=== PATIENT | female | born 1945 | race Caucasian/White ===

== ENCOUNTER → 2023-05-12 | Emergency (ER) | payer OTHER, MEDICARE ==
[2023-05-12 11:01] LABS: Absolute Lymphocytes (CBC) 0.7 K/uL (0.7-4.9); Hematocrit 38.8 % (36.0-45.0); Lymphocytes % 14.8 % (15.3-44.8); MCV 93.6 fL (80-100); MPV 10.1 fL (7.6-11.3); Platelets 124 thou/uL (152-406); RBC Red Blood Cell Count 4.14 M/uL (3.86-4.86)
[2023-05-12 11:03] LABS: Specific Gravity > 1.030 (1.005-1.030); Urine Bacteria None Seen /HPF (<20); Urine Bilirubin NEGATIVE (Negative); Urine Blood Negative (Negative); Urine Clarity Clear (Clear); Urine Color Colorless (Yellow); Urine Glucose 4+ (Over) (Negative); Urine Mucus Slight /HPF (None Seen); Urine Protein NEGATIVE (Negative); Urine RBC <5 /HPF (None Seen); Urine Urobilinogen Normal (Normal)
[2023-05-12 11:15] LABS: Albumin 3.7 g/dL (3.4-5.0); Bilirubin Total 0.3 mg/dL (0.2-1.0); Protein, Total 7.5 g/dL (6.4-8.2)
--- NOTE | 2023-05-12 11:34 | EDPHYS ---
Physician Documentation [facility] Name: Miriam Browning Age: 77 yrs Sex: Female : 1945 Arrival Date: 05/12/2023 Time: 09:52 Bed 5 Private MD: ED Physician Migue Cavazos HPI: 05/12 11:33 This 77 yrs old Female presents to ER via Ambulatory with complaints of Altered Mental ms3 Status. 11:33 77-year-old female with past medical history of diabetes, hypertension, kidney stones ms3 presents to the emergency department with her daughter for altered mental status and confusion that occurred yesterday and during the night last night. Patient's daughter states patient is asymptomatic at this time. Patient is without complaints. Patient denies pain, nausea, vomiting.. Historical: - Allergies: 10:07 No Known Allergies; ll1 - PMHx: 10:07 Diabetes - NIDDM; Hypertension; Kidney stones; ll1 - Immunization history:: Adult Immunizations up to date. - Social history:: Smoking status: Patient denies any tobacco usage or history of. ROS: 11:33 Constitutional: Negative for fever, and chills. Neck: Negative for injury, pain, and ms3 swelling, Cardiovascular: Negative for chest pain, and palpitations. Respiratory: Negative for shortness of breath, cough, wheezing, and pleuritic chest pain, Abdomen/GI: Negative for abdominal pain, nausea, vomiting, diarrhea, and constipation, MS/Extremity: Negative for injury and deformity, Skin: Negative for injury, rash, and discoloration, 11:33 Neuro: Positive for Confusion over night, Exam: 11:33 Constitutional: This is a well developed, well nourished patient who is awake, alert, ms3 and in no acute distress. Head/Face: Normocephalic, atraumatic. Neck: Trachea midline, no cervical lymphadenopathy. Supple, full range of motion without nuchal rigidity, or vertebral point tenderness. No Meningismus. Chest/axilla: Normal chest wall appearance and motion. Nontender with no deformity. Cardiovascular: Regular rate and rhythm with a normal S1 and S2. No gallops, murmurs, or rubs. Normal PMI, no JVD. No pulse deficits. Respiratory: Lungs have equal breath sounds bilaterally, clear to auscultation and percussion. No rales, rhonchi or wheezes noted. No increased work of breathing, no retractions or nasal flaring. Abdomen/GI: Soft, non-tender, with normal bowel sounds. No distension or tympany. No guarding or rebound. No evidence of tenderness throughout. Skin: Warm, dry with normal turgor. Normal color with no rashes, no lesions, and no evidence of cellulitis. MS/ Extremity: Pulses equal, no cyanosis. Neurovascular intact. Full, normal range of motion. Neuro: Awake and alert, GCS 15, oriented to person, place, time, and situation. Cranial nerves II-XII grossly intact. Motor strength 5/5 in all extremities. Sensory grossly intact. Cerebellar exam normal. Normal gait. Psych: Awake, alert, with orientation to person, place and time. Behavior, mood, and affect are within normal limits. Vital Signs: 10:07 BP 132 / 71; Pulse 100; Resp 16; Temp 97.6; Pulse Ox 97% ; Weight 52.16 kg; Height 5 ll1 ft. 3 in. ; Pain 0/10; 11:59 BP 127 / 86; Pulse 91; Resp 18; Temp 98; Pulse Ox 99% on R/A; ph 10:07 Body Mass Index 20.37 (52.16 kg, 160.02 cm) ll1 10:07 Pain Scale: Adult ll1 MDM: 10:09 Patient medically screened. ms3 11:33 Differential Diagnosis: electrolyte abnormality, UTI, Dementia. Data reviewed: vital ms3 signs, nurses notes, lab test result(s), and as a result, I will discharge patient. Historians other than the Patient: Daughter/Son: Patient's daughter. Counseling: I had a detailed discussion with the patient and/or guardian regarding the historical points, exam findings, and any diagnostic results supporting the discharge/admit diagnosis, lab results, the need for outpatient follow up, to return to the emergency department if symptoms worsen or persist or if there are any questions or concerns that arise at home. Special discussion: I discussed with the patient/guardian in detail that at this point there is no indication for admission to the hospital. It is understood, however, that if the symptoms persist or worsen the patient needs to return immediately for re-evaluation. ED course: Discussed labs with patient and her daughter. Patient remains asymptomatic in the emergency department, alert, no apparent distress, nontoxic-appearing, speaking full sentences. Patient to follow-up with Dr. Mesa and Dr. Pablo in 2 to 3 days. Patient's daughter understands and agrees with plan. All questions were answered. Return precautions discussed include worsening symptoms, or any other concerns. 05/12 10:10 Order name: Urinalysis w/ reflexes; Complete Time: 11:15 ms3 05/12 10:10 Order name: CMP; Complete Time: 11:27 ms3 05/12 10:10 Order name: CBC with Diff; Complete Time: 11:15 ms3 Administered Medications: No medications were administered Disposition Summary: 05/12/23 11:33 Discharge Ordered Notes: Location: Home ms3 Condition: Stable ms3 Diagnosis - Altered mental status, unspecified - resolved ms3 Followup: ms3 - With: Ildefonso Mesa MD - When: 2 - 3 days - Reason: Recheck today's complaints Followup: ms3 - With: Fernando Pablo DO - When: 2 - 3 days - Reason: Recheck today's complaints Discharge Instructions: - Discharge Summary Sheet ms3 - Confusion ms3 Forms: - Medication Reconciliation Form ms3 - Thank You Letter ms3 - Antibiotic Education ms3 - Prescription Opioid Use ms3 - Patient Portal Instructions ms3 - Leadership Thank You Letter ms3 Signatures: Dispatcher [employer] Mary Forbes, RN RN ll1 Migue Cavazos DO DO ms3
--- NOTE | 2023-05-12 11:34 | ER ---
Nurse's Notes [facility] Name: Miriam Browning Age: 77 yrs Sex: Female : 1945 Arrival Date: 05/12/2023 Time: 09:52 Bed 5 Private MD: Diagnosis: Altered mental status, unspecified-resolved Presentation: 05/12 10:07 Chief complaint: Patient states: AMS per family, began yesterday. No pain or cough. ll1 Coronavirus screen: Client denies travel out of the [place] in the last 14 days. At this time, the client does not indicate any symptoms associated with coronavirus-19. Ebola Screen: Patient denies travel to an Ebola-affected area in the 21 days before illness onset. Initial Sepsis Screen: Does the patient meet any 2 criteria? HR > 90 bpm. No. Patient's initial sepsis screen is negative. Does the patient have a suspected source of infection? No. Patient's initial sepsis screen is negative. Risk Assessment: Do you want to hurt yourself or someone else? Patient reports no desire to harm self or others. Onset of symptoms was May 11, 2023. 10:07 Method Of Arrival: Ambulatory ll1 10:07 Acuity: SARAN 2 ll1 Historical: - Allergies: 10:07 No Known Allergies; ll1 - PMHx: 10:07 Diabetes - NIDDM; Hypertension; Kidney stones; ll1 - Immunization history:: Adult Immunizations up to date. - Social history:: Smoking status: Patient denies any tobacco usage or history of. Screenin:52 [facility] ED Fall Risk Assessment (Adult) History of falling in the last 3 months, ph including since admission No falls in past 3 months (0 pts). Abuse screen: Denies threats or abuse. Denies injuries from another. Nutritional screening: No deficits noted. Tuberculosis screening: No symptoms or risk factors identified. Assessment: 11:05 General: Appears in no apparent distress. comfortable, slender, well groomed, Behavior ph is calm, cooperative, appropriate for age. Pain: Denies pain. Neuro: Level of Consciousness is awake, alert, obeys commands, Oriented to person, place, situation. Cardiovascular: No deficits noted. : Denies burning with urination, urinary frequency. Vital Signs: 10:07 BP 132 / 71; Pulse 100; Resp 16; Temp 97.6; Pulse Ox 97% ; Weight 52.16 kg; Height 5 ll1 ft. 3 in. ; Pain 0/10; 11:59 BP 127 / 86; Pulse 91; Resp 18; Temp 98; Pulse Ox 99% on R/A; ph 10:07 Body Mass Index 20.37 (52.16 kg, 160.02 cm) ll1 10:07 Pain Scale: Adult ll1 ED Course: 09:54 Patient arrived in ED. mr 09:56 Migue Cavazos DO is Attending Physician. ms3 10:09 Triage completed. ll1 10:09 Arm band placed on Patient placed in an exam room, on a stretcher. ll1 10:11 Deborah Salazar, RN is Primary Nurse. ph 10:58 Patient has correct armband on for positive identification. Bed in low position. Call ph light in reach. Side rails up X 1. Pulse ox on. NIBP on. 11:32 Ildefonso Mesa MD is Referral Physician. ms3 11:32 Fernando Pablo DO is Referral Physician. ms3 11:59 No provider procedures requiring assistance completed. IV discontinued, intact, ph bleeding controlled, No redness/swelling at site. Pressure dressing applied. Administered Medications: No medications were administered Medication: 10:58 VIS not applicable for this client. ph Outcome: 11:33 Discharge ordered by . ms3 11:59 Discharged to ph 11:59 Discharged to home ambulatory, with family, 11:59 Condition: good 11:59 Discharge instructions given to family, Instructed on discharge instructions, follow up and referral plans. Demonstrated understanding of instructions, follow-up care, 12:00 Patient left the ED. ph Signatures: Becky Torres, Reg Reg mr Deborah Salazar, RN RN ph Mary Foster RN RN ll1 Migue Cavazos DO DO ms3
[2023-05-12 12:34] VITALS: BP 127/86; TEMP 98; O2SAT 99
== END ==
LOC: ER 09:52
DX: R41.82 Altered mental status, unspecified (principal); E11.9 Type 2 diabetes mellitus without complications; I10 Essential (primary) hypertension
CPT/HCPCS: 36415; 80053; 81001; 85025

== ENCOUNTER → 2023-06-06 | Emergency (ER) | payer OTHER, MEDICARE ==
[~2023-06-06] MED LIST: TRAZODONE 50 MG TABLET PO ONE
--- NOTE | 2023-06-06 16:14 | EDPHYS ---
Physician Documentation [facility] Name: Miriam Browning Age: 77 yrs Sex: Female : 1945 Arrival Date: 06/06/2023 Time: 13:57 Bed 17 Private MD: ED Physician Enmanuel Aguiar HPI: 06/05 14:24 This 77 yrs old Female presents to ER via Ambulatory with complaints of agitation. sb4 14:25 Patient comes in with agitation per . Patient was seen here 2 weeks ago and sb4 transferred to a [facility] psych facility, she was discharged with prescriptions for Prozac, Abilify, and trazodone. states that he was unable to fill the trazodone therefore patient did not sleep well last night and has been agitated today and trying to leave the house. She has no complaints at this time. Historical: - Allergies: 14:20 No Known Allergies; aa5 - PMHx: 14:20 Dementia; Diabetes - NIDDM; Hypertension; Kidney stones; aa5 - PSHx: 14:20 Cholecystectomy; aa5 - Immunization history:: Adult Immunizations up to date. - Social history:: Smoking status: Patient denies any tobacco usage or history of. ROS: 14:25 Constitutional: Negative for fever, chills, and weight loss, sb4 14:25 All other systems are negative, Exam: 14:25 Constitutional: This is a well developed, well nourished patient who is awake, alert, sb4 and in no acute distress. Head/Face: Normocephalic, atraumatic. Eyes: Extra-ocular motions intact. Periorbital areas with no swelling, redness, or edema. ENT: Mucous membranes moist. Skin: Warm, dry with normal turgor. Normal color with no rashes, no lesions, and no evidence of cellulitis. MS/ Extremity: Pulses equal, no cyanosis. Neurovascular intact. Full, normal range of motion. Vital Signs: 14:09 BP 140 / 56; Pulse 65; Resp 16 S; Temp 97.8(TE); Pulse Ox 98% on R/A; aa5 15:40 BP 135 / 60; Pulse 68; Resp 18; Pulse Ox 98% on R/A; rs5 16:31 BP 137 / 63; Pulse 70; Resp 18; Pulse Ox 99% on R/A; rs5 MDM: 14:13 Patient medically screened. sb4 16:13 Data reviewed: vital signs, nurses notes, and as a result, I will discharge patient. sb4 Counseling: I had a detailed discussion with the patient and/or guardian regarding the historical points, exam findings, and any diagnostic results supporting the discharge/admit diagnosis, to return to the emergency department if symptoms worsen or persist or if there are any questions or concerns that arise at home. Administered Medications: 15:07 Drug: traZODONE PO 50 mg PO once Route: PO; rs5 15:40 Follow up: Response: No adverse reaction rs5 Disposition: 19:11 Co-signature as Attending Physician, Enmanuel Aguiar MD I agree with the assessment and cp3 plan of care. Disposition Summary: 06/06/23 16:13 Discharge Ordered Notes: Location: Home sb4 Problem: new sb4 Symptoms: have improved sb4 Condition: Stable sb4 Diagnosis - Restlessness and agitation sb4 Followup: sb4 - With: Emergency Department - When: As needed - Reason: Trouble breathing, Worsening of condition Discharge Instructions: - Discharge Summary Sheet sb4 Forms: - Thank You Letter sb4 - Patient Portal Instructions sb4 - Leadership Thank You Letter sb4 Prescriptions: - trazodone 50 mg Oral tablet - take 1 tablet ORAL route 3 times per day PRN agitation; 12 tablet; Refills: 0, sb4 Product Selection Permitted Signatures: Enmanuel Aguiar MD MD cp3 Deirdre Cordova, RN RN aa5 Jaimie Umaña PA-C PARadha sb4 Delbert Diaz RN RN rs5
--- NOTE | 2023-06-06 16:14 | ER ---
Nurse's Notes [facility] Name: Miriam Browning Age: 77 yrs Sex: Female : 1945 Arrival Date: 06/06/2023 Time: 13:57 Bed 17 Private MD: Diagnosis: Restlessness and agitation Presentation: 06/05 14:09 Chief complaint: Pt's states "she got released from a psychiatric hospital on aa5 and she just hasn't been sleeping well and today she became more confused, she didn't recognize me and was trying to leave the house". Pt is A\\T\\O x person and place. 14:09 Coronavirus screen: At this time, the client does not indicate any symptoms associated aa5 with coronavirus-19. Ebola Screen: Patient denies travel to an Ebola-affected area in the 21 days before illness onset. Initial Sepsis Screen: Does the patient meet any 2 criteria? No. Patient's initial sepsis screen is negative. Does the patient have a suspected source of infection? No. Patient's initial sepsis screen is negative. Risk Assessment: Do you want to hurt yourself or someone else? Unable to obtain. Onset of symptoms was June 06, 2023. 14:09 Acuity: SARAN 2 aa5 14:09 Method Of Arrival: Ambulatory aa5 Historical: - Allergies: 14:20 No Known Allergies; aa5 - PMHx: 14:20 Dementia; Diabetes - NIDDM; Hypertension; Kidney stones; aa5 - PSHx: 14:20 Cholecystectomy; aa5 - Immunization history:: Adult Immunizations up to date. - Social history:: Smoking status: Patient denies any tobacco usage or history of. Screenin:11 [facility] ED Fall Risk Assessment (Adult) History of falling in the last 3 months, rs5 including since admission No falls in past 3 months (0 pts) Confusion or Disorientation No (0 pts) Intoxicated or Sedated No (0 pts) Impaired Gait No (0 pts) Mobility Assist Device Used No (0 pt) Altered Elimination No (0 pt) Score/Fall Risk Level 0 - 2 = Low Risk Oriented to surroundings, Maintained a safe environment. 14:11 Abuse screen: Denies threats or abuse. Nutritional screening: No deficits noted. rs5 Tuberculosis screening: No symptoms or risk factors identified. Assessment: 14:10 General: Appears uncomfortable, Behavior is anxious, restless. Pain: Denies pain. rs5 Neuro: Level of Consciousness is awake, alert, obeys commands, Oriented to person, place, time, situation. Cardiovascular: Patient's skin is warm and dry. Rhythm is regular. Respiratory: Airway is patent Respiratory effort is even, unlabored, Respiratory pattern is regular, symmetrical. 14:10 GI: Abdomen is flat, non-distended, Abd is soft and non tender X 4 quads. : No signs rs5 and/or symptoms were reported regarding the genitourinary system. EENT: No signs and/or symptoms were reported regarding the EENT system. Derm: Skin is intact, Skin is pink, warm \\T\\ dry. Musculoskeletal: Range of motion: intact in all extremities. 14:30 Reassessment: [facility] med [facility], med order faxed to pharmacy and rs5 pharmacy called. Pharmacy agreed to bring med to me to adm to pt. 14:55 Reassessment: Reassessment: No changes from previously documented assessment. Med has rs5 not arrived. Pharmacy contacted, pharmacy personnel states "we will bring the med to you now". Provider notified. 15:07 Reassessment: to bedside for med adm. rs5 15:10 Reassessment: To bedside for med adm. rs5 16:11 General: Appears in no apparent distress. comfortable, Behavior is calm, cooperative, rs5 provider notified pt is calm and cooperative . 16:11 Reassessment: Patient and/or family updated on plan of care and expected duration. Pain rs5 level reassessed. Patient is alert, oriented x 3, equal unlabored respirations, skin warm/dry/pink. Pain: Denies pain. Vital Signs: 14:09 BP 140 / 56; Pulse 65; Resp 16 S; Temp 97.8(TE); Pulse Ox 98% on R/A; aa5 15:40 BP 135 / 60; Pulse 68; Resp 18; Pulse Ox 98% on R/A; rs5 16:31 BP 137 / 63; Pulse 70; Resp 18; Pulse Ox 99% on R/A; rs5 ED Course: 14:06 Patient arrived in ED. im 14:09 Arm band placed on. aa5 14:12 No provider procedures requiring assistance completed. rs5 14:13 Jaimie Umaña PA-C is PHCP. sb4 14:13 Enmanuel Aguiar MD is Attending Physician. sb4 14:18 Delbert Diaz, RN is Primary Nurse. rs5 14:20 Patient has correct armband on for positive identification. Placed in gown. Bed in low rs5 position. Call light in reach. Side rails up X2. 14:23 Triage completed. aa5 16:31 IV discontinued, intact, bleeding controlled, No redness/swelling at site. Pressure rs5 dressing applied. Administered Medications: 15:07 Drug: traZODONE PO 50 mg PO once Route: PO; rs5 15:40 Follow up: Response: No adverse reaction rs5 Medication: 16:30 VIS not applicable for this client. rs5 Outcome: 16:13 Discharge ordered by MD. sb4 16:31 Discharged to home ambulatory, with family, rs5 16:31 Condition: stable 16:31 Discharge instructions given to patient, family, Instructed on discharge instructions, follow up and referral plans. medication usage, Demonstrated understanding of instructions, follow-up care, medications, Prescriptions given X 1, 16:32 Patient left the ED. rs5 Signatures: Deirdre Cordova RN RN aa5 Jaimie Umaña PA-C PA-C sb4 Delbert Diaz, RN RN rs5 Stacie Garcia Corrections: (The following items were deleted from the chart) 16:26 16:23 Reassessment: rs5 rs5 16:27 15:25 traZODONE PO 50 mg PO rs5 rs5 16:27 14:55 Reassessment: Med has not arrived. Pharmacy contacted, pharmacy personnel states rs5 "we will bring the med to you now". Reassessment: Med has not arrived. Pharmacy contacted, pharmacy personnel states "we will bring the med to you now". rs5 16:28 14:55 Reassessment: No changes from previously documented assessment. Med has not rs5 arrived. Pharmacy contacted, pharmacy personnel states "we will bring the med to you now". Provider notified. Reassessment: No changes from previously documented assessment. Med has not arrived. Pharmacy contacted, pharmacy personnel states "we will bring the med to you now". Provider notified. rs5 16:29 16:11 General: Appears in no apparent distress. comfortable, Behavior is calm, rs5 cooperative, rs5
[2023-06-06 16:51] VITALS: BP 137/63; TEMP 97.8; O2SAT 99
== END ==
LOC: ER 13:57
DX: R45.1 Restlessness and agitation (principal); F03.90 Unspecified dementia, unspecified severity, without behavioral disturbance, psychotic disturbance, mood disturbance, and anxiety
CPT/HCPCS: 99283

== ENCOUNTER 2024-04-29 11:01 | Emergency (ER) | payer OTHER, MEDICARE ==
[2024-04-29] MEDS ORDERED: LORazepam 2 MG/ML VIAL ONE (11:17)
[2024-04-29 11:32] LABS: Absolute Lymphocytes (CBC) 1.2 K/uL (0.7-4.9); Absolute Monocytes 0.6 K/uL (0.1-1.3); Absolute Neutrophil 4.4 K/uL (1.8-8.0); Basophils % 0.3 % (0-1.3); Eosinophils % 0.4 % (0-4.4); Hematocrit 39.4 % (36.0-45.0); Hemoglobin 13.5 g/dL (12.0-15.0); Lymphocytes % 18.7 % (15.3-44.8); MCH 32.4 pg (27.0-35.0); MCHC 34.3 g/dL (32.0-36.0); MCV 94.4 fL (80-100); Monocytes % 9.3 % (3.3-12.3); Neutrophils % 71.3 % (41.7-73.7); Nucleated Red Blood Cells % 0.1 % (0-0); Platelets 119 thou/uL (152-406); RBC Red Blood Cell Count 4.17 M/uL (3.86-4.86)
--- NOTE | 2024-04-29 11:47 | RAD REPORT ---
EXAMINATION: CT HEAD WITHOUT CONTRAST CT CERVICAL SPINE WITHOUT CONTRAST CLINICAL INDICATION: Female, 78 years old. GLF TECHNIQUE: Axial CT images from the skull base to the vertex without intravenous contrast. Axial CT i mages through the cervical spine were obtained without intravenous contrast. Sagittal and coronal reformatted images were created from the data set. Coronal and sagittal reformatted images were creat ed from the data set. One or more of the following dose reduction techniques were used: Automated exposure control, adjustment of the mA and/or kV according to patient size, and/or iterative reconstr uction. Unless otherwise specified, incidental findings do not require dedicated imaging follow-up. [id number]. COMPARISON: 05/21/2023 FINDINGS: Head: INTRACRANIAL: No acute intracranial hemorrhage. No hydrocephalus. No mass effect or midline shift. Mi ld chronic small vessel ischemic changes.Moderate cerebral atrophy. VASCULATURE: No visualized abnormalities in the arteries or dural venous sinuses. SCALP/SKULL: No significant soft tissue or osseous abnormalities. Forehead hematoma SINUSES: The visualized paranasal sinuses and mastoid air cells are predominantly clear. Cervical spine: ALIGNMENT: The cervical spine has normal alignment without scoliosis or spondylolisthesis. BONE: Vertebral body heights are maintained. No aggressive osseous lesions. DEGENERATIVE CHANGES: Multilevel cervical spondylosis with varying degrees of neural foraminal narrow ing. This is most pronounced on the left at C3-4 and on the right at C5-6 and C6-7. SOFT TISSUE: IMPRESSION: No acute intracranial abnormality. No acute fracture or traumatic malalignment of the cervical spine.
--- NOTE | 2024-04-29 11:49 | RAD REPORT ---
EXAM: Chest Single View HISTORY: COUGH COMPARISON: 05/21/2023 FINDINGS: LUNGS/PLEURA: Subtle nodular opacities in the right upper lobe which are new from prior. MEDIASTINUM: The mediastinal silhouette is within normal limits. CARDIAC: The cardiac silhouette is within normal limits. UPPER ABDOMEN: No significant abnormality. BONES: No acute abnormality. LINES/TUBES/OTHER: N/A IMPRESSION: Subtle right upper lobe nodular opacities could reflect infection or sequela of recent infection.
--- NOTE | 2024-04-29 11:51 | RAD REPORT ---
EXAMINATION: CT MAXILLOFACIAL WITHOUT CONTRAST CLINICAL INDICATION: Female, 78 years old. R nely-orb injury TECHNIQUE: Axial images were obtained through the facial bones and orbits without intravenous contras t. Sagittal and coronal reconstructions were created from the data. One or more of the following dose reduction techniques were used: Automated exposure control, adjustment of the mA and/or kV accor ding to patient size, and/or iterative reconstruction. Unless otherwise specified, incidental findings do not require dedicated imaging follow-up. [id number]. COMPARISON: No prior exam. FINDINGS: SOFT TISSUE: No significant abnormalities. BONES: No evidence of fracture, dislocation, or aggressive osseous lesions. No lesion of the visuali zed skull base or calvarium. Soft tissue hematoma at the forehead to the right of midline.. Lucency associated with the left maxillary first molar. ORBITS: The globes are intact. No intraorbital hemorrhage or mass. SINUSES: The paranasal sinuses and tympanomastoid cavities are predominantly clear. BRAIN: No acute abnormalities in the visualized intracranial structures. IMPRESSION: No facial fracture. Forehead hematoma.
[2024-04-29 11:52] LABS: PT Prothrombin Time 11.3 SECONDS (9.4-12.5); Protime INR 1.08
[2024-04-29 12:02] LABS: Anion Gap 9.1 mEq/L (5.0-15.0); Potassium 4.1 mEq/L (3.5-5.1); Troponin High Sensitivity 8.1 pg/mL (<58.9)
[2024-04-29] MEDS ORDERED: DIAZEPAM 10 MG/2 ML INJ SYRINGE ONE (12:03)
[2024-04-29 13:01] LABS: Specific Gravity 1.024 (1.005-1.030); Urine Bacteria <20 /HPF (<20); Urine Bilirubin NEGATIVE (Negative); Urine Blood Negative (Negative); Urine Clarity Turbid (Clear); Urine Color Light-Yellow (Yellow); Urine Culture Reflex Order NOT NEEDED; Urine Glucose 1+ (Negative); Urine Ketones NEGATIVE (Negative); Urine Micro Reflex YN NO BILL MICROSCOPIC; Urine Mucus Slight /HPF (None Seen); Urine Nitrite NEGATIVE (Negative); Urine Protein TRACE (Negative); Urine RBC <5 /HPF (None Seen); Urine Urobilinogen Normal (Normal); Urine WBC <5 /HPF (<5); Urine pH 7.5 (5.0-7.0)
--- NOTE | 2024-04-29 13:08 | EDPHYS ---
Physician Documentation [facility] Name: Miriam Browning Age: 78 yrs Sex: Female : 1945 Arrival Date: 04/29/2024 Time: 11:01 Bed 2 Private MD: ED Physician Ethan Roman HPI: 04/29 11:08 This 78 yrs old Female presents to ER via Unassigned with complaints of GLF. ec2 11:08 Patient arrives today for evaluation after ground-level fall. Reports that she had a ec2 ground-level fall after she slipped and fell on a freshly cleaned surface. No LOC, not on blood thinners, complaining of facial pain to the right face as well as facial swelling. Injury occurred last night.. Historical: - Allergies: 11:09 No Known Allergies; jl7 - PMHx: 11:09 Dementia; Diabetes - NIDDM; Hypertension; Kidney stones; hyperlipidemia; jl7 - Immunization history:: Adult Immunizations unknown. - Infectious Disease History:: Denies. - Social history:: Smoking status: Patient denies any tobacco usage or history of. ROS: 11:09 Constitutional: as per hpi ec2 Exam: 11:09 Constitutional: GEN: No acute distress HEENT: -Head: no deformities -Eyes: EOMI CV: ec2 regular rate LUNGS: no respiratory distress ABD: non-tender SKIN: no wounds appreciated right periorbital region with ecchymosis noted, no deformities or crepitus appreciated. MSK: No C/T/L spine deformities RUE w/o bony deformity LUE w/o bony deformity RLE w/o bony deformity LLE w/o bony deformity NEURO: moves all extremities equally, GCS 15 (E4, V5, M6) Vital Signs: 11:07 BP 171 / 86; Pulse 73; Resp 17; Temp 97; Pulse Ox 100% ; Weight 44.5 kg; jl7 14:03 BP 141 / 78; Pulse 74; Resp 16; Pulse Ox 98% on R/A; iw MDM: 11:03 Medical Screening Exam initiated ec2 11:09 Data reviewed: vital signs, nurses notes. ED course: Patient arrives today for ec2 evaluation after GLF. Examination yields right facial findings as above. Will obtain lab work, CT imaging. Differential includes facial fractures, intracranial brain bleed, C-spine fracture, anemia.. 12:16 ED course: Metabolic profile is reassuring, troponin within normal ranges. CBC is ec2 reassuring. Chest x-ray shows possible recent infection, patient without any respiratory symptoms at this time. CT scan of the head and C-spine without bony fractures, facial bones with hematoma noted. Pending urine study. Will give the patient Valium for restlessness.. 12:37 ED course: EKG independently reviewed and interpreted by me, shows normal sinus rhythm, ec2 rate of 69, no acute ST segment elevations, intervals are nonactionable.. 13:06 ED course: Urine is noninfectious appearing.. ec2 04/29 11:04 Order name: Basic Metabolic Panel; Complete Time: 12:16 ec2 04/29 11:04 Order name: CBC with Diff; Complete Time: 11:48 ec2 04/29 11:04 Order name: Troponin HS; Complete Time: 12:16 ec2 04/29 11:09 Order name: UAM; Complete Time: 13:05 ec2 04/29 11:15 Order name: PT-INR; Complete Time: 12:01 ec2 04/29 11:15 Order name: Ptt, Activated; Complete Time: 12:01 ec2 04/29 11:04 Order name: XRAY Chest (1 view); Complete Time: 12:01 ec2 04/29 11:04 Order name: CT Head C Spine; Complete Time: 11:48 ec2 04/29 11:04 Order name: Facial Bones W/O Con CT; Complete Time: 12:01 ec2 04/29 11:04 Order name: Cardiac monitoring; Complete Time: 12:42 ec2 04/29 11:04 Order name: EKG - Nurse/Tech; Complete Time: 12:42 ec2 04/29 11:04 Order name: IV Saline Lock; Complete Time: 11:23 ec2 04/29 11:04 Order name: Labs collected and sent; Complete Time: 11:23 ec2 04/29 11:04 Order name: O2 Per Protocol; Complete Time: 11:56 ec2 04/29 11:04 Order name: O2 Sat Monitoring; Complete Time: 11:56 ec2 04/29 12:16 Order name: Cath; Complete Time: 12:18 ec2 Administered Medications: 11:19 Drug: Ativan IVP 1 mg IVP once Route: IVP; Site: right forearm; iw 12:19 Drug: Diazepam IVP 5 mg IVP once Route: IVP; Site: right forearm; iw Disposition Summary: 04/29/24 13:07 Discharge Ordered Notes: Location: Home ec2 Condition: Stable ec2 Diagnosis - Fall on same level, unspecified ec2 Followup: ec2 - With: Private Physician - When: - Reason: Re-evaluation by your physician Discharge Instructions: - Discharge Summary Sheet ec2 - Fall Prevention in the Home, Adult, [id number] ec2 Forms: - Medication Reconciliation Form ec2 - Antibiotic Education ec2 - Prescription Opioid Use ec2 - Patient Portal Instructions ec2 - Leadership Thank You Letter ec2 Signatures: Dispatcher [employer] Rubi Garzon RN RN iw Leal, Jahala, RN RN jl7 Ethan Roman MD MD ec2 Corrections: (The following items were deleted from the chart) 11:10 11:09 PMHx: Hypercholesterolemia; jl7 jl7
--- NOTE | 2024-04-29 13:08 | ER ---
Nurse's Notes [facility] Name: Miriam Browning Age: 78 yrs Sex: Female : 1945 Arrival Date: 04/29/2024 Time: 11:01 Bed 2 Private MD: Diagnosis: Fall on same level, unspecified Presentation: 04/29 11:07 Chief complaint: EMS states: Toned out to [place] for fall, bruising and swelling jl7 noted to right side of face. Coronavirus screen: At this time, the client does not indicate any symptoms associated with coronavirus-19. Ebola Screen: No symptoms or risks identified at this time. Initial Sepsis Screen: Does the patient meet any 2 criteria? No. Patient's initial sepsis screen is negative. Does the patient have a suspected source of infection? No. Patient's initial sepsis screen is negative. Risk Assessment: Do you want to hurt yourself or someone else? Patient reports no desire to harm self or others. Onset of symptoms is unknown. 11:07 Method Of Arrival: EMS: [facility] jl7 11:07 Acuity: SARAN 3 jl7 Historical: - Allergies: 11:09 No Known Allergies; jl7 - PMHx: 11:09 Dementia; Diabetes - NIDDM; Hypertension; Kidney stones; hyperlipidemia; jl7 - Immunization history:: Adult Immunizations unknown. - Infectious Disease History:: Denies. - Social history:: Smoking status: Patient denies any tobacco usage or history of. Screenin:57 [facility] ED Fall Risk Assessment (Adult) History of falling in the last 3 months, iw including since admission Yes- single mechanical fall (1 pt) Confusion or Disorientation Yes (5 pts) Intoxicated or Sedated No (0 pts) Impaired Gait Yes (1 pt) Mobility Assist Device Used Yes (1 pt) Altered Elimination No (0 pt) Score/Fall Risk Level 3 or more points = High Risk Maintained a safe environment, Educated pt \\T\\ family on fall prevention, incl call for assistance when getting out of bed, Hourly rounding (assess needs \\T\\ fall precautionary measures) done. Abuse screen: Denies threats or abuse. Nutritional screening: No deficits noted. Tuberculosis screening: No symptoms or risk factors identified. Assessment: 11:00 General: Appears in no apparent distress. Behavior is agitated, anxious, uncooperative. iw Pain: Denies pain. Neuro: Level of Consciousness is awake, alert, confused, Oriented to Moves all extremities. Cardiovascular: Respiratory: Respiratory effort is even, Respiratory pattern is regular. 11:56 Reassessment: pt repeats over and over "there's nothing wrong with me , take me home". iw 14:05 Reassessment: report called to [facility] will set up transport back to facility. iw 14:46 Reassessment: Patient appears in no apparent distress at this time. [facility] at bedside for transport. Vital Signs: 11:07 BP 171 / 86; Pulse 73; Resp 17; Temp 97; Pulse Ox 100% ; Weight 44.5 kg; jl7 14:03 BP 141 / 78; Pulse 74; Resp 16; Pulse Ox 98% on R/A; iw ED Course: 11:00 Initial lab(s) drawn, by me, sent to lab. Inserted saline lock: 22 gauge in right iw forearm, using aseptic technique. Blood collected. Flushed with 10 mL NS. 11:03 Patient arrived in ED. ec2 11:03 Ethan Roman MD is Attending Physician. ec2 11:06 Jayjay Levi, RN is Primary Nurse. jl7 11:08 Rubi Coleman, [facility] is Primary Nurse. iw 11:09 Triage completed. jl7 11:09 Arm band placed on right wrist. jl7 11:35 CT Head C Spine In Process Unspecified. EDMS 11:35 Facial Bones W/O Con CT In Process Unspecified. EDMS 11:45 XRAY Chest (1 view) In Process Unspecified. EDMS 12:44 UAM Sent. iw 14:46 No provider procedures requiring assistance completed. IV discontinued, intact, iw bleeding controlled, No redness/swelling at site. Pressure dressing applied. Administered Medications: 11:19 Drug: Ativan IVP 1 mg IVP once Route: IVP; Site: right forearm; iw 12:19 Drug: Diazepam IVP 5 mg IVP once Route: IVP; Site: right forearm; iw Medication: 14:47 VIS not applicable for this client. iw Outcome: 13:07 Discharge ordered by . ec2 14:46 [facility] to [facility]. Report called to [facility] [place] intern form completed. iw 14:46 Condition: good 14:46 Discharge instructions given to prison, Instructed on discharge instructions, Demonstrated understanding of instructions, 14:47 Patient left the ED. iw Signatures: Dispatcher [employer] Rubi Garzon RN RN iw Leal, Jahala, RN RN jl7 Ethan Roman MD MD ec2 Corrections: (The following items were deleted from the chart) 11:10 11:09 PMHx: Hypercholesterolemia; fern jl7
[2024-04-29 15:00] VITALS: TEMP 97
[2024-04-29 15:01] VITALS: BP 141/78; O2SAT 98
== END 2024-04-29 14:47 | disposition home or self-care (01) ==
LOC: ER 11:01
DX: S00.11XA Contusion of right eyelid and periocular area, initial encounter (principal); W18.30XA Fall on same level, unspecified, initial encounter
CPT/HCPCS: 85025; 81001; 80048; 36415; 85610; 85730; 84484; 70450; 72125; 70486; 76377; 71045; 96375; 96374; 99284; J3360; 93005

== ENCOUNTER 2024-05-12 08:37 | Emergency (ER) | payer OTHER, MEDICARE ==
--- NOTE | 2024-05-12 09:20 | RAD REPORT ---
EXAMINATION: CT HEAD WITHOUT CONTRAST CT CERVICAL SPINE WITHOUT CONTRAST CLINICAL INDICATION: Female, 78 years old. TRAUMA TECHNIQUE: Axial CT images from the skull base to the vertex without intravenous contrast. Axial CT i mages through the cervical spine were obtained without intravenous contrast. Sagittal and coronal reformatted images were created from the data set. Coronal and sagittal reformatted images were creat ed from the data set. One or more of the following dose reduction techniques were used: Automated exposure control, adjustment of the mA and/or kV according to patient size, and/or iterative reconstr uction. Unless otherwise specified, incidental findings do not require dedicated imaging follow-up. [id number]. COMPARISON: 04/29/2024 FINDINGS: Head: INTRACRANIAL: No acute intracranial hemorrhage. No hydrocephalus. No mass effect or midline shift. Mi ld chronic small vessel ischemic changes.Age advanced cerebral atrophy. VASCULATURE: No visualized abnormalities in the arteries or dural venous sinuses. SCALP/SKULL: Forehead hematoma. No skull fracture. SINUSES: The visualized paranasal sinuses and mastoid air cells are predominantly clear. Cervical spine: ALIGNMENT: Unchanged. No traumatic malalignment. BONE: Vertebral body heights are maintained. No aggressive osseous lesions. DEGENERATIVE CHANGES: Multilevel cervical spondylosis with varying degrees of neural foraminal narrow ing. No high-grade central spinal stenosis. SOFT TISSUE: No significant abnormalities in the soft tissue of the neck. The visualized lung apices are clear. IMPRESSION: No acute intracranial abnormality. No acute fracture or traumatic malalignment of the cervical spine.
--- NOTE | 2024-05-12 09:34 | ER ---
Nurse's Notes [facility] Name: Miriam Browning Age: 78 yrs Sex: Female : 1945 Arrival Date: 05/12/2024 Time: 08:37 Bed 19 Private MD: Diagnosis: Fall, closed head injury Presentation: 05/12 08:42 Chief complaint: EMS states: they were toned out to [place] because "she was found kc6 crawling around in her room so they think she fell". pt denies any complaints at this time. unknown LOC, takes a baby ASA daily. Coronavirus screen: At this time, the client does not indicate any symptoms associated with coronavirus-19. Ebola Screen: No symptoms or risks identified at this time. Initial Sepsis Screen: Does the patient meet any 2 criteria? Altered Mental Status. Does the patient have a suspected source of infection? No. Patient's initial sepsis screen is negative. Risk Assessment: Do you want to hurt yourself or someone else? Patient reports no desire to harm self or others. Onset of symptoms was May 12, 2024. 08:42 Method Of Arrival: EMS: [facility] 6 08:42 Acuity: SARAN 4 kc6 Historical: - Allergies: 08:44 No Known Allergies; kc6 - PMHx: 08:44 Dementia; Diabetes - NIDDM; Hyperlipidemia; Hypertension; Kidney stones; Seizure; kc6 Anxiety; Alzheimer's disease; - PSHx: 08:44 Cholecystectomy; kc6 - Immunization history:: Adult Immunizations up to date. - Infectious Disease History:: Denies. - Social history:: Smoking status: unknown. Screenin:47 [facility] ED Fall Risk Assessment (Adult) History of falling in the last 3 months, kc6 including since admission Yes- single mechanical fall (1 pt) Confusion or Disorientation Yes (5 pts) Intoxicated or Sedated No (0 pts) Impaired Gait No (0 pts) Mobility Assist Device Used No (0 pt) Altered Elimination No (0 pt) Score/Fall Risk Level 3 or more points = High Risk Oriented to surroundings, Maintained a safe environment, Educated pt \\T\\ family on fall prevention, incl call for assistance when getting out of bed. Abuse screen: Denies threats or abuse. Denies injuries from another. Nutritional screening: No deficits noted. Tuberculosis screening: No symptoms or risk factors identified. Assessment: 08:47 General: Appears in no apparent distress. comfortable, slender, well groomed, well kc6 developed, Behavior is calm, cooperative, appropriate for age. Pain: Unable to use pain scale. Patient is disoriented. Neuro: Level of Consciousness is awake, alert, obeys commands, confused, Oriented to person, Appropriate for age. Cardiovascular: Capillary refill < 3 seconds. Respiratory: Airway is patent Trachea midline Respiratory effort is even, unlabored, Respiratory pattern is regular, symmetrical. GI: No signs and/or symptoms were reported involving the gastrointestinal system. : No signs and/or symptoms were reported regarding the genitourinary system. EENT: No signs and/or symptoms were reported regarding the EENT system. Derm: Skin is intact, is healthy with good turgor, Skin is dry, Skin is normal, Skin temperature is warm Bruising that is dark purple, green, yellow, on face and right eye. Musculoskeletal: No signs and/or symptoms reported regarding the musculoskeletal system. Circulation, motion, and sensation intact. Range of motion: intact in all extremities, Swelling present in base of the skull. 09:42 Reassessment: Patient appears in no apparent distress at this time. No changes from kc previously documented assessment. Patient and/or family updated on plan of care and expected duration. Pain level reassessed. nurse to nurse report given to [facility]. state they will arrange transport and call back with an ETA. Vital Signs: 08:42 BP 173 / 96; Pulse 75; Resp 18 S; Temp 98.2(O); Pulse Ox 97% on R/A; Weight 44.91 kg kc6 (M); Height 5 ft. 3 in. (R); Pain 0/10; 08:42 Body Mass Index 17.54 (44.91 kg, 160.02 cm) kc6 08:42 Pain Scale: Adult [facility] ED Course: 08:42 Patient arrived in ED. kc6 08:44 Cindy Pablo MD is Attending Physician. sp3 08:44 Triage completed. kc6 08:44 Arm band placed on. kc6 08:46 Patient has correct armband on for positive identification. Bed in low position. Call [facility] light in reach. Side rails up X2. Pulse ox on. NIBP on. Door closed. Noise minimized. Lights dimmed. Warm blanket given. Pillow given. Verbal reassurance given. 08:47 Patient maintains SpO2 saturation greater than 95% on room air. kc6 08:52 Odessa Sung, RN is Primary Nurse. kc6 09:09 CT Head C Spine In Process Unspecified. EDMS 10:54 No provider procedures requiring assistance completed. Patient did not have IV access kc6 during this emergency room visit. Administered Medications: No medications were administered Medication: 10:54 VIS not applicable for this client. kc6 Outcome: 09:34 Discharge ordered by . sp3 10:54 Discharged to long-term. kc6 10:54 Condition: good 10:54 Discharge instructions given to patient, Instructed on discharge instructions, follow up and referral plans. 10:54 Patient left the ED. kc6 Signatures: Dispatcher [employer] EDCindy Shell MD MD sp3 Odessa Sung, RN RN kc6 Corrections: (The following items were deleted from the chart) 08:52 08:47 Musculoskeletal: No signs and/or symptoms reported regarding the musculoskeletal kc6 system. Circulation, motion, and sensation intact. Range of motion: intact in all extremities, kc6
--- NOTE | 2024-05-12 09:35 | EDPHYS ---
Physician Documentation [facility] Name: Miriam Browning Age: 78 yrs Sex: Female : 1945 Arrival Date: 05/12/2024 Time: 08:37 Bed 19 Private MD: ED Physician Cindy Pablo HPI: 05/12 08:55 This 78 yrs old Female presents to ER via EMS with complaints of Fall Injury. sp3 08:55 78-year-old female with a history of dementia, diabetes, hyperlipidemia, hypertension, sp3 seizure disorder now presents to the ED via EMS for potential fall. residential staff found patient crawling on the floor. Patient has ecchymosis to the face from prior fall approximately 2 weeks ago. She also has a swelling/seroma on the posterior neck which was reported by EMS. Patient has no complaints. ROS, history and physical limited secondary to dementia.. Historical: - Allergies: 08:44 No Known Allergies; kc6 - PMHx: 08:44 Dementia; Diabetes - NIDDM; Hyperlipidemia; Hypertension; Kidney stones; Seizure; kc6 Anxiety; Alzheimer's disease; - PSHx: 08:44 Cholecystectomy; kc6 - Immunization history:: Adult Immunizations up to date. - Infectious Disease History:: Denies. - Social history:: Smoking status: unknown. ROS: 08:56 Unable to obtain ROS due to baseline dementia, sp3 Exam: 08:56 Constitutional: This is a well developed, well nourished patient who is awake, alert, sp3 and in no acute distress. ENT: Nares patent. No nasal discharge, no septal abnormalities noted. External auditory canals are clear. Oropharynx with no redness, swelling, or masses, exudates, or evidence of obstruction, uvula midline. Mucous membranes moist. Chest/axilla: Normal chest wall appearance and motion. Nontender with no deformity. No lesions are appreciated. Cardiovascular: Regular rate and rhythm with a normal S1 and S2. No gallops, murmurs, or rubs. Normal PMI, no JVD. No pulse deficits. Respiratory: Lungs have equal breath sounds bilaterally, clear to auscultation and percussion. No rales, rhonchi or wheezes noted. No increased work of breathing, no retractions or nasal flaring. Abdomen/GI: Soft, non-tender, with normal bowel sounds. No distension or tympany. No guarding or rebound. No evidence of tenderness throughout. Back: No spinal tenderness. No costovertebral tenderness. Full range of motion. Skin: Warm, dry with normal turgor. Normal color with no rashes, no lesions, and no evidence of cellulitis. MS/ Extremity: Pulses equal, no cyanosis. Neurovascular intact. Full, normal range of motion. Neuro: Awake and alert, GCS 15, oriented to person, place, time, and situation. Cranial nerves II-XII grossly intact. Motor strength 5/5 in all extremities. Sensory grossly intact. Cerebellar exam normal. Normal gait. 08:56 Head/face: Ecchymoses noted on the right periorbital and facial area. There is evaluated for this injury approximately 2 weeks ago.. 08:56 Musculoskeletal/extremity: Right lower extremity amputation noted clinically. No pain in hips or other joints with normal joint exams.. Vital Signs: 08:42 BP 173 / 96; Pulse 75; Resp 18 S; Temp 98.2(O); Pulse Ox 97% on R/A; Weight 44.91 kg kc6 (M); Height 5 ft. 3 in. (R); Pain 0/10; 08:42 Body Mass Index 17.54 (44.91 kg, 160.02 cm) kc6 08:42 Pain Scale: Adult kc6 MDM: 08:44 Medical Screening Exam initiated sp3 08:57 Data reviewed: vital signs, nurses notes, radiologic studies. ED course: No obvious sp3 signs of new injury. It is unknown whether patient had a traumatic fall or not however we will scan CT head and C-spine. If negative we will safely discharge patient back to nursing facility. I not highly concerned of any other traumatic injury, other inciting metabolic or somatic process, or any other critical pathology at this time. Vital signs are normal with blood pressure being slightly elevated at 173.. 09:33 ED course: Scans are negative and we will safely discharge patient back to nursing sp3 facility.. 05/12 08:54 Order name: CT Head C Spine; Complete Time: 09:33 sp3 Administered Medications: No medications were administered Disposition Summary: 05/12/24 09:34 Discharge Ordered Notes: Location: Home sp3 Condition: Stable sp3 Diagnosis - Fall, closed head injury sp3 Followup: sp3 - With: Private Physician - When: Upon discharge from the Emergency Department - Reason: Continuance of care Discharge Instructions: - Discharge Summary Sheet sp3 - Fall Prevention in Hospitals, Adult sp3 Forms: - Medication Reconciliation Form sp3 - Antibiotic Education sp3 - Prescription Opioid Use sp3 - Patient Portal Instructions sp3 - Leadership Thank You Letter sp3 Signatures: Dispatcher [employer] EDMS Cindy Pablo MD MD sp3 Odessa Sung RN RN kc6 Corrections: (The following items were deleted from the chart) 08:55 08:55 Head C Spine MPR Wo Con+CT.RAD.BRZ ordered. EDMS EDMS
[2024-05-13 14:36] VITALS: BP 173/96; TEMP 98.2; O2SAT 97
== END 2024-05-12 10:54 | disposition home or self-care (01) ==
LOC: ER 08:37
DX: S00.83XA Contusion of other part of head, initial encounter (principal); W18.30XA Fall on same level, unspecified, initial encounter; Y92.129 Unspecified place in nursing home as the place of occurrence of the external cause; G30.9 Alzheimer's disease, unspecified; F02.80 Dementia in other diseases classified elsewhere, unspecified severity, without behavioral disturbance, psychotic disturbance, mood disturbance, and anxiety
CPT/HCPCS: 70450; 72125; 99283